=== PATIENT | male | born 1960 | race Two or more races ===

== ENCOUNTER 2025-10-09 21:18 | Emergency (ER) | payer MEDICARE, OTHER ==
[~2025-10-09] VITALS: Ht 167.6 cm; Wt 77.1 kg
[2025-10-09] MEDS: IV NS 0.9% 500 ML BAG IV ONE (21:55)
[2025-10-09 22:08] LABS: PLATELET COUNT (AUTO) 278 K/uL (150-450); RED BLOOD CELL COUNT(AUTO) 4.03 MIL/uL (4.5-6.0); RED CELL DISTRIBUTION WIDTH 15.6 % (11.5-15.0); WHITE BLOOD COUNT (AUTO) 15.3 K/uL (4.3-11.0)
[2025-10-09 22:14] LABS: CALCIUM, SERUM 9.9 mg/dL (8.5-10.1); CREATININE 2.2 mg/dL (0.6-1.3); SODIUM SERUM 135.0 mmol/L (136-145); UREA NITROGEN, BLOOD 28.0 mg/dL (7-18)
[2025-10-09] MEDS ORDERED: ACETAMINOPHEN ES 500 MG TABLET ONE (22:38)
[2025-10-09] MEDS: IV LR 1000 ML 1,000 ML IV ONE (22:42)
[2025-10-09] MEDS: ACETAMINOPHEN 325 MG TABLET PO ONE (22:42)
[2025-10-09 23:49] LABS: APPEARANCE,URINE CLEAR (CLEAR); BLOOD, URINE TRACE-INTA Ery/uL (NEGATIVE); LEUKOCYTE ESTERASE ,URINE TRACE (NEGATIVE); NITRITE, URINE NEGATIVE (NEGATIVE); UGLUCOSE 2+ mg/dL (NEGATIVE)
[2025-10-10 00:26] LABS: CALCIUM, SERUM 9.1 mg/dL (8.5-10.1); CREATININE 2.0 mg/dL (0.6-1.3); SODIUM SERUM 138.0 mmol/L (136-145); UREA NITROGEN, BLOOD 27.0 mg/dL (7-18)
[2025-10-10 00:39] LABS: ADD URINE CULTURE NO; SQUAMOUS EPITHELIAL CELL,UR 0-2 /HPF (None Seen)
[2025-10-10 04:34] VITALS: BP 132/80; TEMP 98; O2SAT 97
== END 2025-10-10 04:35 | disposition home or self-care (01) ==
LOC: ER 22:06
DX: D72.829 Elevated white blood cell count, unspecified (principal); E11.22 Type 2 diabetes mellitus with diabetic chronic kidney disease; I12.9 Hypertensive chronic kidney disease with stage 1 through stage 4 chronic kidney disease, or unspecified chronic kidney disease; N18.9 Chronic kidney disease, unspecified; Z20.822 Contact with and (suspected) exposure to COVID-19
CPT/HCPCS: 99285; 96365; 71045; 87426; 93005; 87804 ×2; 85025; 80048 ×2; 81001; 36415; J7120; J7040